=== PATIENT | male | born 1985 | race African-American/Black ===

== ENCOUNTER 2020-05-26 18:36 | Emergency (ER) | payer MEDICAID ==
[2020-05-26] MEDS ORDERED: Ketorolac 60 MG/2 ML SDV IM ONE (23:32)
--- NOTE | 2020-05-26 23:38 | EDM.PDOC ---
ED HPI GENERAL MEDICAL PROBLEM - General Chief Complaint: General Stated Complaint: TOOTH PAIN Time Seen by Provider: 05/26/20 23:18 Source of Information: Reports: Patient History Limitations: Reports: No Limitations - History of Present Illness INITIAL COMMENTS - FREE TEXT/NARRATIVE: This is a 34-year-old male. He has been having left lower jaw tooth pain for the last 3 days. He states he just moved here and he does not have a dentist and he has not called the dentist yet either. I have encouraged him to call the dentist to get his tooth fixed. States he has had no fever no chills no drainage but the throbbing pain has kept him from sleeping so he comes to the ER. He has taken some ibuprofen as well as some Aleve but it has not helped. He denies any other acute symptoms. 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 Left Lower Tooth/Teeth Pain Score (Numeric/FACES): 8 - Related Data Allergies Allergy/AdvReac Type Severity Reaction Status Date / Time No Known Allergies Allergy Verified 05/26/20 20:22 Home Meds: Home Meds Penicillin V Potassium [Veetids] 500 mg PO Q8H #21 tab 05/26/20 [Rx] traMADol [Ultram] 50 mg PO Q6H PRN #15 tab 05/26/20 [Rx] Past Medical History - Past Health History Medical/Surgical History: Denies Medical/Surgical History Musculoskeletal History: Reports: Fracture Neurological History: Reports: Head Trauma - Infectious Disease History Infectious Disease History: Reports: Chicken Pox Other Infectious Disease History: chicken pox as child - Past Surgical History Musculoskeletal Surgical History: Reports: ORIF, Other (See Below) Other Musculoskeletal Surgeries/Procedures:: left femur repair, anterior right skull repair Social & Family History - Tobacco Use Smoking Status *Q: Current Every Day Smoker Years of Tobacco use: 19 Packs/Tins Daily: 0.2 - Caffeine Use Caffeine Use: Reports: Coffee - Recreational Drug Use Recreational Drug Use: Yes Drug Use in Last 12 Months: Yes Recreational Drug Type: Reports: Marijuana/Hashish Recreational Drug Use Frequency: Daily ED ROS GENERAL - Review of Systems Review Of Systems: See Below Constitutional: Denies: Fever, Chills HEENT: Reports: Dental Pain Respiratory: Denies: Shortness of Breath, Cough Cardiovascular: Reports: No Symptoms Endocrine: Reports: No Symptoms GI/Abdominal: Reports: No Symptoms : Reports: No Symptoms Musculoskeletal: Reports: No Symptoms Skin: Reports: No Symptoms Neurological: Reports: No Symptoms Psychiatric: Reports: No Symptoms Hematologic/Lymphatic: Reports: No Symptoms ED EXAM, GENERAL - Physical Exam Exam: See Below Exam Limited By: No Limitations General Appearance: Alert, WD/WN, No Apparent Distress Eye Exam: Bilateral Eye: Normal Inspection Ears: Normal External Exam, Normal Canal, Normal TMs Nose: Normal Inspection Throat/Mouth: Normal Lips, Normal Voice, No Airway Compromise, Other (Looking at his teeth he has advanced dental caries and multiple teeth but the one that is bothering him is the very back molar on the left lower jaw. He is missing several teeth on that left lower jaw as well. There is no drainage there is no gum swelling or cheek swelling noted the soft tissue around that area is slightly tender but not swollen.) Head: Normocephalic Neck: Supple, Other (No significant lymphadenopathy at the angle of the jaws) Respiratory/Chest: No Respiratory Distress Back Exam: Full Range of Motion Extremities: Normal Inspection, Normal Range of Motion Neurological: Alert, Oriented Psychiatric: Normal Affect, Normal Mood Skin Exam: Warm, Dry Course - Vital Signs Last Recorded V/S: Last Vital Signs Temp 97.1 F 05/26/20 20:17 Pulse 74 05/26/20 20:17 Resp 16 05/26/20 20:17 BP 105/57 L 05/26/20 20:17 Pulse Ox 99 05/26/20 20:17 - Orders/Labs/Meds Orders: Active Orders 24 hr Category Date Time Status Ketorolac [Toradol] Med 05/26/20 23:32 Once 60 mg IM ONETIME ONE - Re-Assessments/Exams Free Text/Narrative Re-Assessment/Exam: 05/26/20 23:35 I encouraged the patient to get a dentist. Departure - Departure Time of Disposition: 23:36 Disposition: Home, Self-Care 01 Condition: Good Clinical Impression: Pain, dental, Dental infection - Discharge Information *PRESCRIPTION DRUG MONITORING PROGRAM REVIEWED*: Not Applicable *COPY OF PRESCRIPTION DRUG MONITORING REPORT IN PATIENT CASH: Not Applicable Prescriptions: traMADol [Ultram] 50 mg PO Q6H PRN #15 tab PRN Reason: Pain Penicillin V Potassium [Veetids] 500 mg PO Q8H #21 tab Instructions: Preventive Dental Care, Adult Referrals: PCP,None [Primary Care Provider] - Additional Instructions: Use ice or heat to the jaw to help with the pain whichever feels better, get your antibiotics and the pain medicine filled tomorrow at the pharmacy and start taking the antibiotic faithfully and the medicine for pain as needed, you need to call a dentist here in town to have that tooth repaired, return to the ER if needed Sepsis Event Note (ED) - Evaluation Sepsis Screening Result: No Definite Risk - Focused Exam Vital Signs: Vital Signs Temp Pulse Resp BP Pulse Ox 05/26/20 20:17 97.1 F 74 16 105/57 L 99 - My Orders Last 24 Hours: My Active Orders 05/26/20 23:32 Ketorolac [Toradol] 60 mg IM ONETIME ONE - Assessment/Plan Last 24 Hours: My Active Orders 05/26/20 23:32 Ketorolac [Toradol] 60 mg IM ONETIME ONE
== END 2020-05-27 00:05 | disposition home or self-care (01) ==
LOC: EDBD 18:36 → JD.ED 18:36
DX: K04.7 Periapical abscess without sinus (principal); K02.9 Dental caries, unspecified; F17.210 Nicotine dependence, cigarettes, uncomplicated
CPT/HCPCS: 96372; 99282; J1885; 99283

== ENCOUNTER 2021-04-10 09:48 | Emergency (ER) | payer MEDICAID, OTHER ==
--- NOTE | 2021-04-10 11:23 | CR ---
Left ankle: 4 views of the left ankle were obtained. Comparison: No prior ankle study is available. Soft tissue swelling is identified. Ankle mortise is symmetric. No acute fracture or dislocation is seen. Impression: 1. Soft tissue swelling. 2. No acute bony abnormality is seen on left ankle exam. Diagnostic code #2
--- NOTE | 2021-04-10 12:01 | EDM.PDOC ---
ED HPI GENERAL MEDICAL PROBLEM - General Chief Complaint: Lower Extremity Injury/Pain Stated Complaint: LEFT ANKLE INJURY Time Seen by Provider: 04/10/21 10:34 Source of Information: Reports: Patient, RN Notes Reviewed - History of Present Illness INITIAL COMMENTS - FREE TEXT/NARRATIVE: 35 yr old male twisted L ankle 2 days ago. Could walk initially but now today too painful to walk or bear wt. Painful medial and lateral ankle Left Ankle Pain Score (Numeric/FACES): 8 - Related Data Allergies Allergy/AdvReac Type Severity Reaction Status Date / Time No Known Allergies Allergy Verified 04/10/21 10:19 Home Meds: Home Meds . [No Known Home Meds] 04/10/21 [History] Past Medical History - Past Health History Medical/Surgical History: Denies Medical/Surgical History HEENT History: Reports: None Cardiovascular History: Reports: None Respiratory History: Reports: None Gastrointestinal History: Reports: None Genitourinary History: Reports: None Musculoskeletal History: Reports: Fracture Neurological History: Reports: Head Trauma Psychiatric History: Reports: None Endocrine/Metabolic History: Reports: None Oncologic (Cancer) History: Reports: None Dermatologic History: Reports: None - Infectious Disease History Infectious Disease History: Reports: Chicken Pox Other Infectious Disease History: chicken pox as child - Past Surgical History HEENT Surgical History: Reports: Oral Surgery Male Surgical History: Reports: None Musculoskeletal Surgical History: Reports: ORIF, Other (See Below) Other Musculoskeletal Surgeries/Procedures:: left femur repair, anterior right skull repair Social & Family History - Family History Family Medical History: No Pertinent Family History - Tobacco Use Tobacco Use Status *Q: Current Every Day Tobacco User Years of Tobacco use: 20 Packs/Tins Daily: 1 - Caffeine Use Caffeine Use: Reports: Coffee - Recreational Drug Use Recreational Drug Use: Yes Drug Use in Last 12 Months: Yes Recreational Drug Type: Reports: Marijuana/Hashish Recreational Drug Use Frequency: Daily Review of Systems - Review of Systems Review Of Systems: See Below Constitutional: Reports: No Symptoms Respiratory: Reports: No Symptoms GI/Abdominal: Reports: No Symptoms Musculoskeletal: Reports: Joint Pain Skin: Reports: No Symptoms Neurological: Reports: No Symptoms ED EXAM, GENERAL - Physical Exam Exam: See Below General Appearance: Alert, No Apparent Distress Head: Atraumatic Neck: Supple Respiratory/Chest: No Respiratory Distress, Lungs Clear, Normal Breath Sounds Cardiovascular: Regular Rate, Rhythm Extremities: Joint Swelling (tender and swollen medial and lat. L ankle. Jt stable, no visual deformity, achilles is good, foot nontender) Neurological: Alert, Oriented, No Motor/Sensory Deficits Course - Vital Signs Last Recorded V/S: Last Vital Signs Temp 98.3 F 04/10/21 10:23 Pulse 80 04/10/21 10:23 Resp 18 04/10/21 10:23 BP 131/83 04/10/21 10:23 Pulse Ox 99 04/10/21 10:23 - Re-Assessments/Exams Free Text/Narrative Re-Assessment/Exam: 04/10/21 13:07 no fx Departure - Departure Time of Disposition: 11:59 Disposition: Home, Self-Care 01 Condition: Fair Clinical Impression: Ankle sprain Qualifiers: Encounter type: initial encounter Involved ligament of ankle: unspecified ligament Laterality: left Qualified Code(s): S93.402A - Sprain of unspecified ligament of left ankle, initial encounter - Discharge Information Instructions: Ankle Sprain Referrals: PCP,None [Primary Care Provider] - Forms: ED Department Discharge, ED Return to Work/School Form Additional Instructions: continue with shawnee wrap, ice packs and elevation, Use crutches until no longer painful with wt bearing. Follow up clinic if not getting back to normal within 7 to 10 days as expected. Sepsis Event Note (ED) - Focused Exam Vital Signs: Vital Signs Temp Pulse Resp BP Pulse Ox 04/10/21 10:23 98.3 F 80 18 131/83 99
== END 2021-04-10 12:10 | disposition home or self-care (01) ==
LOC: JD.ED 09:48
DX: S93.402A Sprain of unspecified ligament of left ankle, initial encounter (principal); Z72.0 Tobacco use; X50.1XXA Overexertion from prolonged static or awkward postures, initial encounter; Y93.44 Activity, trampolining
CPT/HCPCS: 73610-26-LT; 73610-LT; 99282; 99283-25

== ENCOUNTER 2024-02-01 15:46 | Emergency (ER) | payer SELFPAY ==
[2024-02-01 16:54] LABS: CORONAVIRUS COVID-19 NAA NEGATIVE (NEGATIVE); INFLUENZA A NAA NEGATIVE (NEGATIVE); RESPIRATORY SYNCYTIAL VIR NAA NEGATIVE (NEGATIVE)
== END 2024-02-01 17:00 | disposition home or self-care (01) ==
LOC: JD.ED 15:46
DX: Z11.52 Encounter for screening for COVID-19 (principal)
CPT/HCPCS: 0241U; 99283; 99281